=== PATIENT | male | born 1955 | race Caucasian/White ===

== ENCOUNTER 2020-07-29 13:50 | Emergency (ER) | payer SELFPAY ==
[2020-07-29 14:10] VITALS: BP 146/74; PULSE 61; RESP 18; TEMP 36.7; O2SAT 99; BMI 21.2
[2020-07-29 14:38] VITALS: PULSE 63; O2SAT 98
[2020-07-29 15:00] VITALS: BP 129/71; PULSE 65; O2SAT 98
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
[2020-07-29] MEDS: LIDO 1%/SOD BICARB 8.4% (10ML) 10 ML SYRINGE INJ (15:22)
[2020-07-29] MEDS: BACITRACIN OINT 0.9 GM PCKT 1 APPLIC TOP (15:23)
[2020-07-29] MEDS: ACETAMINOPHEN 325 MG TABLET 650 MG PO (16:11)
== END 2020-07-29 17:00 | disposition home or self-care (01) ==
PROVIDERS: Emergency Provider Nurse Practitioner Family
DX: S01.81XA Laceration without foreign body of other part of head, initial encounter (principal); S09.90XA Unspecified injury of head, initial encounter; S05.10XA Contusion of eyeball and orbital tissues, unspecified eye, initial encounter; W22.8XXA Striking against or struck by other objects, initial encounter
CPT/HCPCS: 12013; 70450; 81003; 99281; 99284